=== PATIENT | male | born 1955 | race Caucasian/White ===

== ENCOUNTER 2022-08-01 13:41 | Emergency (ER) | payer MEDICARE, SELFPAY ==
[2022-08-01 13:42] VITALS: BP 147/101; PULSE 100; RESP 16; TEMP 36.8; O2SAT 96; BMI 27.9
--- NOTE | 2022-08-01 15:55 | EX.ED.GENINJ ---
HPI <TERESITA Decker - Last Filed: 08/01/22 18:13> History of Present Illness Chief Complaint: Laceration Narrative Narrative: Patient presents with a laceration on the top of his nose. He states earlier this afternoon he walked into a beam because he was not paying attention. He denies loss of consciousness, dizziness, headache, blurry vision, confusion, nausea, vomiting. PFSH <TERESITA Decker - Last Filed: 08/01/22 18:13> PFSH Medical History Hyperlipemia Hypertension Allergy/AdvReac Type Severity Reaction Status Date / Time No Known Allergies Allergy Verified 08/01/22 13:44 Social History Smoking Status: Never smoker ROS <TERESITA Decker - Last Filed: 08/01/22 18:13> ROS ED Constitutional Constitutional ED: Denies chills or fever(s) Eyes Eyes: Denies blurry vision or change in vision ENT ENT ED: Reports facial pain; Denies epistaxis, nasal obstruction, rhinorrhea or sore throat Cardiovascular Cardiovascular: Denies chest pain Respiratory/Chest Respiratory/Chest: Denies cough or dyspnea Gastrointestinal Gastrointestinal: Denies abdominal pain, nausea or vomiting Musculoskeletal Musculoskeletal: Denies back pain, myalgias or neck pain Integumentary Reports new lesions; Denies abscess or rash Neurologic Neurologic: Denies confusion, dizziness, headache(s), loss of vision or weakness Hematologic/Lymphatic Hematologic/Lymphatic: Denies easy bleeding EXAM <TERESITA Decker - Last Filed: 08/01/22 18:13> Physical Exam Const Vital Signs: 08/01/22 13:42 Temperature 98.2 F Temperature Source Temporal Pulse Rate 100 Respiratory Rate 16 Blood Pressure 147/101 H Blood Pressure Mean 116 Pulse Ox 96 Oxygen Delivery Method Room Air Positive well nourished and well developed General Appearance ED: well developed HEENT HEENT Narrative: Patient has a small, superficial and linear laceration to the bridge of his nose. Patient's nose appears crooked. Mild edema and ecchymosis to the bridge of the nose. No current bleeding. atraumatic; Negative for tenderness Nose: septum abnormal deviated Eyes PERRL and EOMs intact bilaterally Neck full ROM General: Negative for tenderness Resp normal respiratory effort and clear to auscultation bilaterally Cardio regular rhythm and no murmurs Rate: regular rate GI non-tender, non-distended and no masses Back/Spine normal to inspection Extremity normal to inspection and full ROM Neuro oriented x3, CN's II-XII intact bilaterally, moves all extremities, no focal motor deficits, no sensory deficits noted and gait normal Sensorium / Orientation: alert Motor Exam: strength 5/5 throughout Psych mental status grossly normal and thought process normal Skin Skin Narrative: Patient has a small, superficial and linear 1 inch laceration to the bridge of his nose. <Dr. Rahat Arredondo DO - Last Filed: 08/01/22 16:51> Physical Exam Const Vital Signs: 08/01/22 13:42 Temperature 98.2 F Temperature Source Temporal Pulse Rate 100 Respiratory Rate 16 Blood Pressure 147/101 H Blood Pressure Mean 116 Pulse Ox 96 Oxygen Delivery Method Room Air PROC <TERESITA Decker - Last Filed: 08/01/22 18:13> Procedures Lacerations laceration : Length: 2.2 cm Depth: Skin Shape: Linear Prep: Sterile Conditions and Chlorhexadine Laceration repair: Irrigated, Lidocaine and Skin sutures Irrigated (ml): 30 Number of Sutures/Ector: 3 Suture Information: Ethilon (6-0) [facility] <TERESITA Decker - Last Filed: 08/01/22 18:13> MDM MDM Narrative Medical decision making narrative: Topical let was applied and wound was irrigated and cleaned. 3 sutures were placed and bacitracin and a dressing was placed. Patient has been educated on how to keep wound clean as well as signs of infection to look out for. Patient stated he was supposed to follow-up with ENT earlier this year to receive surgery to correct his deviated septum as well as straighten out the nose. He recently moved to [place] and did not receive that procedure. I referred him to ENT here so he can get this taken care of as well as assess for current nasal fracture. <Dr. Rahat Arredondo DO - Last Filed: 08/01/22 16:51> [facility] Treatment and Re-Evaluation Narrative: I performed a history and physical examination of the patient and discussed management plan with the physician pizza hut assistant. I reviewed the physician pizza hut assistant's note and agree with the documented findings and plan of care. There is no septal hematoma. There is some deformity to the nose but there is also swelling. He notes a chronic deformity that he is going to have surgery on earlier in the year but canceled it. Wound was sutured by the PA after local anesthesia. Wound care was discussed with patient return if worsening or concerns Rahat Arredondo DO, MS Discharge Plan Triage Chief Complaint: Laceration ED Midlevel Provider: Ly Koch ED Provider: Rahat Arredondo Dx/Rx/DC Orders Clinical Impression: Laceration, Contusion of nose Instructions: ED Laceration: All Closures Primary Care Provider: [facility] ,Out of Referrals: Juan Francisco Ryder MD [Med Staff - Active Staff] - 1-2 Weeks [facility] ,Out of [Primary Care Provider] - Activity Restrictions/Additional Instructions: Wash laceration site once daily with mild soap and apply bacitracin ointment or petroleum jelly to the area once daily and cover with a bandage. Remove sutures in 4 to 5 days. Follow-up with ENT in 2 weeks after swelling goes down to discuss possible nasal fracture. Disposition Disposition: Home, Self Care Discharge Date/Time: 08/01/22 16:43
[2022-08-01] MEDS: Lidocaine/Epi/Tetracaine 50 ML 1 APPLIC TOPICAL (16:07)
[2022-08-01] MEDS: Lidocaine 1% (20 ml mdv) 20 ML Vial INFILT (16:07)
== END 2022-08-01 16:43 | disposition home or self-care (01) ==
PROVIDERS: Emergency Provider Emergency Medicine; Visit Provider Emergency Medicine
DX: S01.21XA Laceration without foreign body of nose, initial encounter (principal); X58.XXXA Exposure to other specified factors, initial encounter
CPT/HCPCS: 99282

== ENCOUNTER → 2022-08-14 | Outpatient (CLI) | payer MEDICARE, BC, SELFPAY ==
--- NOTE | 2022-08-14 08:47 | EKG12_ITS ---
Test Reason : PRE OP Blood Pressure : / mmHG Vent. Rate : 089 BPM Atrial Rate : 089 BPM P-R Int : 154 ms QRS Dur : 106 ms QT Int : 368 ms P-R-T Axes : 060 074 014 degrees QTc Int : 447 ms Normal sinus rhythm Nonspecific ST abnormality Abnormal ECG Confirmed by IVAN ARRIETA, LAUREEN ([id number]), newspaper photo editor EUSEBIA SUTTON ([id number]) on 08/15/2022 8:55:26 AM Referred By: RENETTA Confirmed By:LAUREEN LOVE MD
[2022-08-14 10:16] LABS: Hemoglobin 15.9 g/dL (13.0-16.5); Mean Corp Hgb Conc 33.1 g/dL (32-36); Mean Corpuscular Hgb 28.8 pg (27.0-32.0); Mean Corpuscular Volume 86.8 fL (80-94); Mean Platelet Vol. 9.6 fl (6.2-12.0); Platelet Count 273 K/mm3 (150-450); RBC Distribution Width CV 12.3 % (11.6-14.6); RBC Distribution Width SD 38.9 fl (35.1-43.9); Red Blood Count 5.53 M/mm3 (4.6-6.2); White Blood Count 6.2 K/mm3 (4.4-11.0)
[2022-08-14 10:36] LABS: Anion Gap 5 (5-15); BUN 18 mg/dL (7-18); BUN/Creat Ratio 16.8 RATIO (10-20); Calcium,Total 9.7 mg/dL (8.5-10.1); Chloride 103 mmol/L (98-107); Creatinine, Serum 1.07 mg/dL (0.70-1.30); EST Glomerular Filtration Rate 74 mL/min (>60); Est Glom Filt Rate - Afr Amer 89 mL/min (>60); Glucose 118 mg/dL (74-106); Potassium 3.4 mmol/L (3.5-5.1); Sodium Level 140 mmol/L (136-145)
== END | disposition home or self-care (01) ==
LOC: PSN 08:43
PROVIDERS: Visit Provider Otolaryngology
DX: R94.31 Abnormal electrocardiogram [ECG] [EKG] (principal)
CPT/HCPCS: 36415; 80048; 85027; 93005

== ENCOUNTER → 2022-09-04 | Outpatient (CLI) | payer MEDICARE, BC, SELFPAY ==
--- NOTE | 2022-09-04 12:35 | STEWCON_ITS ---
Reason For Study: Abnormal EKG; Pre-Op Stress Results Protocol: Clyde Protocol WITH DEFINITY Maximum Predicted HR: 155 bpm Target HR: 132 bpm % Maximum Predicted HR: 99 % DurationHeart Rate Stage (mm:ss) (bpm) BP Comment Baseline 63 118/88No Chest Pain; 3.5 ML Diluted Definity Clyde Protocol Stage I 3:00 117 130/78No Chest Pain Clyde Protocol Stage II 3:00 151 146/72No Chest Pain Clyde Protocol Stage III 0:10 153 / No Chest Pain Recovery 85 118/88No Chest Pain Stress Duration: 6:10 mm:ss Maximum Stress HR: 153 bpm METS: 7 Baseline Echocardiogram Findings Stress Echo Wall motion Data Resting WM Intermediate WM Stress WM Resting Wall Motion Wall Motion Stress No regional wall motion All segments Hyperkinetic. abnormalities noted. EKG Data The baseline ECG displays normal sinus rhythm. The maximum heart rate attained was 162 beats per minute. During stress, there were no ST or T wave changes noted to suggest ischemia. ECHO/Stress Test Echo W/Contrast Interpretation Summary Negative exercise stress echo Ordering Physician: KATIE DAVIDSON Referring Physician: KATIE DAVIDSON Performed By: Baldemar Foster RCS
== END | disposition home or self-care (01) ==
LOC: CVS 12:30
DX: R94.31 Abnormal electrocardiogram [ECG] [EKG] (principal)
CPT/HCPCS: 93017; 93350; Q9957; A4216; C8928